=== PATIENT | male | born 1990 | race Caucasian/White ===

== ENCOUNTER 2017-06-27 13:13 | Emergency (ER) | payer SELFPAY ==
[~2017-06-27] VITALS: Ht 190.5 cm; Wt 97.7 kg
[~2017-06-27 13:13] MED LIST: CLON-529 PO; ZOLP5TAB8 PO
[2017-06-27 13:39] VITALS: BP 139/84
[2017-06-27] MEDS ORDERED: HYDROcodone/acetaminophen 10/325mg tab PO STA (13:46)
== END 2017-06-27 14:48 | disposition home or self-care (01) ==
LOC: ER 13:13
DX: M79.642 Pain in left hand (principal); J45.909 Unspecified asthma, uncomplicated; F12.10 Cannabis abuse, uncomplicated; Z79.899 Other long term (current) drug therapy
CPT/HCPCS: 73140; 99284

== ENCOUNTER 2018-02-05 12:07 | Emergency (ER) | payer SELFPAY ==
[~2018-02-05] VITALS: Ht 188 cm; Wt 95.0 kg
[2018-02-05 12:08] VITALS: BP 123/75
[2018-02-05] MEDS ORDERED: ketorolac tromethamine 15mg/ml inj. IM ONE (12:30)
[2018-02-05] MEDS ORDERED: ACET-3067 PO (12:52)
== END 2018-02-05 13:13 | disposition home or self-care (01) ==
LOC: ER 12:08
DX: S20.212A Contusion of left front wall of thorax, initial encounter (principal); J45.909 Unspecified asthma, uncomplicated; F12.90 Cannabis use, unspecified, uncomplicated; Z79.899 Other long term (current) drug therapy; W54.1XXA Struck by dog, initial encounter; Y93.01 Activity, walking, marching and hiking; Y92.89 Other specified places as the place of occurrence of the external cause; Y99.8 Other external cause status
CPT/HCPCS: 71101; 96372; 99284; J1885